=== PATIENT | male | born 1965 ===

== ENCOUNTER → 2017-08-27 | Outpatient (CLI) | payer SELFPAY ==
[~2017-08-27] MED LIST: CYCL10 PO; HYDACE5 PO; IBUP400 PO; IBUP800 PO; NAPR500 PO; VICODIN ES 7.51 EACH PO
[2017-08-27 08:37] LABS: BASOPHILS PERCENT AUTO 1 % (0-2); EOSINOPHILS ABSOLUTE AUTO 0.25 K/mm3 (0.00-0.68); EOSINOPHILS PERCENT AUTO 2 % (0-6); Hematocrit 45.2 % (37.0-53.0); Hemoglobin 16.1 g/dL (13.5-17.5); IMMATURE GRAN ABSOLUTE AUTO 0.08 K/mm3 (0.00-0.10); IMMATURE GRAN PERCENT AUTO 1 % (0-1); LYMPHOCYTES ABSOLUTE AUTO 4.58 K/mm3 (0.84-5.20); LYMPHOCYTES PERCENT AUTO 41 % (21-46); MONOCYTES ABSOLUTE AUTO 0.99 K/mm3 (0.16-1.47); MONOCYTES PERCENT AUTO 9 % (4-13); Mean Corpuscular HGB 31.5 pg (26.0-34.0); Mean Corpuscular HGB Conc 35.6 g/dL (31.5-36.5); Mean Corpuscular Volume 89 fL (80-100); Mean Platelet Volume 9.5 fL (9.1-12.4); NEUTROPHILS ABSOLUTE AUTO 5.26 K/mm3 (1.96-9.15); NEUTROPHILS PERCENT AUTO 47 % (41-73); Platelet Count 237 K/mm3 (150-400); RDW Coefficient Variation 13.7 % (11.7-14.2); RDW Standard Deviation 44.2 fL (35.1-46.3); Red Blood Cell Count 5.11 M/mm3 (4.30-5.90); White Blood Cell Count 11.26 K/mm3 (4.00-11.30)
[2017-08-27 08:52] LABS: Alanine Aminotransfer (ALT/SGP 104 U/L (12-78); Albumin, Blood 3.6 g/dL (3.4-5.0); Albumin/Globulin Ratio 0.9 (0.8-1.8); Alk Phos 74 U/L (40-126); Anion Gap 10 mmol/L (6-16); Aspartate Aminotrans (AST/SGOT 42 U/L (12-37); Bilirubin, Total 0.6 mg/dL (0.1-1.0); Blood Urea Nitrogen 13 mg/dL (8-24); Bun/Creatinine Ratio 14.1 (12.0-20.0); CO2, Blood 24 mmol/L (21-32); Calcium, Blood 8.3 mg/dL (8.5-10.1); Chloride, Blood 104 mmol/L (98-108); Creatinine, Blood 0.92 mg/dL (0.60-1.20); Globulin, Blood 3.9 g/dL (2.2-4.0); Glomerular Filtration Rate >60 (60-); Glucose, Blood 103 mg/dL (70-99); Potassium, Blood 4.4 mmol/L (3.5-5.5); Sodium, Blood 138 mmol/L (136-145); Total Protein, Blood 7.5 g/dL (6.4-8.2); Troponin I <0.017 ng/mL (0.000-0.040)
== END | disposition home or self-care (01) ==
LOC: LAB EV 08:33 → LAB SHORT 08:33
PROVIDERS: Physician Assistant
DX: R06.02 Shortness of breath (principal)
CPT/HCPCS: 80053; 84484; 85025

== ENCOUNTER 2019-06-22 19:27 | Inpatient (IN) | payer OTHER ==
[~2019-06-22] VITALS: Ht 177.8 cm; Wt 107.0 kg
[2019-06-22 20:13] LABS: Source, Urine Clean Catch
[2019-06-22 20:17] LABS: Bilirubin, Urine Neg (Neg); Blood, Urine 4+ (Neg); Glucose Qualitative, Urine Neg (Neg); Ketones, Urine 1+ (Neg); Leukocyte Esterase, Urine 1+ (Neg); Nitrite, Urine Neg (Neg); Protein, Urine 2+ (Neg); Specific Gravity, Urine 1.015 (1.003-1.022); Urobilinogen, Urine NORM (Normal)
[2019-06-22 20:23] LABS: Appearance, Urine Clear (Clear); Color, Urine Amber (P-Yellow)
[2019-06-22 20:25] LABS: Bacteria Few /hpf; Hyaline Casts Rare /lpf (0-2); Red Blood Cells, Urine 0-2 /hpf (0-2); Squamous Epithelial Cells Rare /hpf (Few); White Blood Cells, Urine 0-2 /hpf (0-5)
[2019-06-22 20:44] LABS: BASOPHILS ABSOLUTE AUTO 0.07 K/mm3 (0.00-0.23); BASOPHILS PERCENT AUTO 0 % (0-2); EOSINOPHILS ABSOLUTE AUTO 0.11 K/mm3 (0.00-0.68); EOSINOPHILS PERCENT AUTO 1 % (0-6); Hematocrit 49.1 % (37.0-53.0); Hemoglobin 17.3 g/dL (13.5-17.5); IMMATURE GRAN ABSOLUTE AUTO 0.12 K/mm3 (0.00-0.10); IMMATURE GRAN PERCENT AUTO 1 % (0-1); LYMPHOCYTES ABSOLUTE AUTO 4.67 K/mm3 (0.84-5.20); LYMPHOCYTES PERCENT AUTO 22 % (21-46); MONOCYTES ABSOLUTE AUTO 1.66 K/mm3 (0.16-1.47); MONOCYTES PERCENT AUTO 8 % (4-13); Mean Corpuscular HGB 32.1 pg (26.0-34.0); Mean Corpuscular HGB Conc 35.2 g/dL (31.5-36.5); Mean Corpuscular Volume 91 fL (80-100); Mean Platelet Volume 9.8 fL (9.1-12.4); NEUTROPHILS ABSOLUTE AUTO 14.43 K/mm3 (1.96-9.15); NEUTROPHILS PERCENT AUTO 69 % (41-73); Platelet Count 306 K/mm3 (150-400); RDW Coefficient Variation 12.3 % (11.7-14.2); RDW Standard Deviation 41.3 fL (35.1-46.3); Red Blood Cell Count 5.39 M/mm3 (4.30-5.90); White Blood Cell Count 21.06 K/mm3 (4.00-11.30)
[2019-06-22 20:56] LABS: Alanine Aminotransfer (ALT/SGP 87 U/L (12-78); Albumin, Blood 3.8 g/dL (3.4-5.0); Albumin/Globulin Ratio 0.9 (0.8-1.8); Alk Phos 74 U/L (50-136); Anion Gap 7 mmol/L (6-16); Aspartate Aminotrans (AST/SGOT 24 U/L (12-37); Bilirubin, Total 1.1 mg/dL (0.1-1.0); Blood Urea Nitrogen 16 mg/dL (8-24); Bun/Creatinine Ratio 16.7 (12.0-20.0); CO2, Blood 24 mmol/L (21-32); Calcium, Blood 8.8 mg/dL (8.5-10.1); Chloride, Blood 107 mmol/L (98-108); Creatinine, Blood 0.96 mg/dL (0.60-1.20); Globulin, Blood 4.2 g/dL (2.2-4.0); Glomerular Filtration Rate >60 (60-); Glucose, Blood 131 mg/dL (70-99); Potassium, Blood 4.2 mmol/L (3.5-5.5); Sodium, Blood 138 mmol/L (136-145)
[2019-06-22] MEDS ORDERED: IBUPROFEN200 M1 PO (23:14)
--- NOTE | 2019-06-23 07:33 | NUR ---
SHIFT SUMMARY PT NEW ADMIT THIS SHIFT. AAOX4. NPO. DISCOMFORT CONTROLLED WITH 1MG IV DILAUDID Q2H. NO NAUSEA/EMESIS. FIRM ABD WITH SEVERE DISTENSION NOTED SINCE ADMISSION TO FLOOR, PT REPORTING SINCE EARLY SUNDAY. IVF + ABX PER ORDERS. QUESTIONS ANSWERED REGARDING TX + SURGICAL PACKET ON FRONT OF CHART. PT RESTING AT THIS TIME WITH CALL LIGHT IN REACH. REPORT TO DAY SHIFT RN.
--- NOTE | 2019-06-23 08:44 | NUR ---
EDWIGE ENGEL HERE FROM [facility] TO [employer] LOAN COUNSELOR PATIENT FOR SURGERY. PATIENT UP TO BATHROOM TO VOID PRIOR AND MEDICATED FOR SEVERE PAIN WITH IV DILAUDID PER EMAR. PATIENT GROANS WITH PAIN WITH MOVEMENT AND AT REST. REPORTS IT IS PAINFUL TO TAKE DEEP BREATH.
--- NOTE | 2019-06-23 09:12 | NUR ---
History, Chart, Medications and Allergies reviewed before start of procedure.Patient confirms NPO status and agrees with scheduled surgery. PATIENT INTO SDS PREOP. PAINFUL. MEDICATED WITH PAIN MEDS BY FLOOR RN TRANSFERING OUT OF ROOM. Surgical site prepped with 2% Chlorhexidine cloth wipe.
--- NOTE | 2019-06-23 12:15 | NUR ---
POST OP PT ARRIVES AND STANDS TO TRANSFER SELF TO BED. ABD SOFT, LAP INC x 4. SCANT DRNG SANGUINOUS. ALERT, PLEASANT. TAKING IN ICE CHIPS AND SIPS OF WATER.
--- NOTE | 2019-06-23 15:08 | NUR ---
WENT TO CHECK ON PATIENT. PATIENT TOLERATING POPSICLE, AND MULTIPLE CUPS OF ICE CHIPS. PATIENT ALSO PROVIDED WITH SWEETENED ICE TEA. PATIENT SLEEPING IN BED COMFORTABLY AT THIS TIME.
--- NOTE | 2019-06-23 18:02 | NUR ---
SHIFT SUMMARY PT HAD LAP APPY TODAY AND REPORTS FEELING MUCH BETTER POST OP. PAIN MANAGED WITH 1 PERCOCET. HAD ONE EPISODE OF DIAPHORESIS W/ NO FEVER. OTHERWISE HAS BEEN UP TO THE BATHROOM, TOLERATING CLEAR LQS, AND SURG SITE WNL.
--- NOTE | 2019-06-24 05:42 | NUR ---
SHIFT SUMMARY POD 1 LAP APPY. PT A/OX4 WITH VSS. NO DRAINAGE TO ABD SITES 4X; STERI STRIPS C/D/I AND OPEN TO AIR. PT TOLERATING CL. DENIES N/V OR PASSING FLATUS. IS VOIDING WITHOUT DIFFICULTY. C/O "HEART BURN AND FEELNG BLOATED," REPORTS RELIEF WITH TUMS/PO PAIN MEDICATION AND REPOSITIONING. APPEARS TO HAVE SLEPT T/O MOST OF SHIFT. PT IS CURRENTLY RESTING IN BED WITH CALL LIGHT IN REACH AND BED IN LOWEST POSITION. WILL CONT TO MONITOR AND GIVE REPORT TO ONCOMING RN.
--- NOTE | 2019-06-24 07:52 | NUR ---
NEW IV ACCESS UPON PATIENT RETURNING TO FLOOR FROM OR. 18 G TO RIGHT HAND. EXTENSION ADDED TO IV THIS AM AND DRESSING CHANGED. PATIENT SALINE LOCKED AT THIS TIME AND UP INDEPENDENTLY IN ROOM.
[2019-06-24] MEDS ORDERED: AMOCLA875 PO (11:52)
[2019-06-24] MEDS ORDERED: OXYC5 PO (11:53)
--- NOTE | 2019-06-24 12:14 | NUR ---
ORDERS RECEIVED FOR DISCHARGE. COMPLETED PER PROVIDER ORDERS. IV DC'D. PATIENT CALLED FRIEND FOR DISCHARGE RIDE. ESCORTED PATIENT TO ER ENTRANCE FOR PICKUP BY FAMILY MEMBER VIA VEHICLE. PATIENT PROVIDED WITH ALL BELONGINGS: CLOTHES, SHOES, AND HOUSE LOVE. PATIENT GIVEN DISCHARGE INSTRUCTIONS AND RX FOR PAIN MED AND ANTIBIOTICS. NO FURTHER QUESTIONS PER PATIENT. ADVISED DR. JIANG OFFICE WILL CALL TO CHECK IN NEXT 1-2 DAYS.
== END 2019-06-24 12:17 | disposition home or self-care (01) | DRG 343 ==
LOC: ER 19:27 → SURS 22:45
PROVIDERS: Nurse Practitioner; Surgery; ADMIT Surgery
PROC: 0DTJ4ZZ Resection of Appendix, Percutaneous Endoscopic Approach (ICD-10-PCS; principal; 2019-06-23 09:30)
DX: K35.891 Other acute appendicitis without perforation, with gangrene (principal); F17.210 Nicotine dependence, cigarettes, uncomplicated
CPT/HCPCS: 36415; 74177; 80053; 81001; 83690; 85025; 87086; 88304; 96365-59; 96366; 96375; 99285-25; A9270; A9270-GY; J0330; J1100; J1170; J1885; J2250; J2270; J2370; J2405; J2543; J2704; J3010; J7030; J7120; Q9967